=== PATIENT | female | born 1975 ===

== ENCOUNTER → 2023-04-30 13:59 | Outpatient (BNVA) | payer OTHER, MEDICARE, MEDICAID, SELFPAY | PROVIDERS: PCP Nurse Practitioner Adult Health; Visit Provider Nurse Practitioner Family ==

== ENCOUNTER → 2023-05-08 14:25 | Outpatient (BNVA) | payer OTHER, MEDICARE, MEDICAID, SELFPAY | PROVIDERS: PCP Nurse Practitioner Adult Health; Visit Provider Nurse Practitioner Family ==

== ENCOUNTER 2023-05-26 06:00 | Outpatient (REF) | payer OTHER, MEDICARE, MEDICAID, SELFPAY ==
--- NOTE | ~2023-05-26 | FL_ITS ---
EXAMINATION: XR FLUOROSCOPY WITH IMAGES CLINICAL INFORMATION: Chronic pain syndrome. COMPARISON: None available. TECHNIQUE: Fluoroscopy Supervised By: Dr. Todd Mckeon. Fluoroscopy Time: 0.2 minutes. Cumulative Dose: 1.61 mGy. DAP: 0.0280 Gycm2. Images: 2. FINDINGS: Images demonstrate needle projecting over the spinal canal of the upper lumbar spine FL/FL guidance in treatment room IMPRESSION: Fluoroscopic guidance for pain management procedure.
== END 2023-05-26 06:01 | disposition home or self-care (01) ==
LOC: CF 06:00
PROVIDERS: Visit Provider Anesthesiology
DX: G89.4 Chronic pain syndrome (principal); R10.11 Right upper quadrant pain; R10.12 Left upper quadrant pain; R10.13 Epigastric pain
CPT/HCPCS: 62323; J1170; J2795; Q9967

== ENCOUNTER 2023-05-26 07:11 | Outpatient (AMB) | payer OTHER, MEDICARE, MEDICAID, SELFPAY ==
[2023-05-26 07:15] VITALS: BP 118/52; PULSE 85; RESP 14; O2SAT 98; BMI 19.1
--- NOTE | 2023-05-26 07:15 | A.OFFVIS_ITS ---
Intake Vital Signs 05/26/23 07:15 05/26/23 10:10 Height 5 ft 5 in 5 ft 5 in Weight 115 lb 115 lb BMI 19.1 19.1 BP 118/52 L 110/60 Blood Pressure Location Lt brachial Rt brachial Position Sitting Sitting Respiration 14 14 Pulse 85 70 Pulse Source Pulse Oximeter Pulse Oximeter Pulse Oximetry (%) 98 98 Oxygen Delivery Method Room Air Room Air Comment Pre-Op Post-op Intake Visit Reasons: ITDD TRIAL WITH DILAUDID/LOCAL Allergies topiramate [From Topamax] Allergy (Unknown, Verified 05/26/23 07:16) Rash [facility] Medical History Abdominal pain, chronic, epigastric Anxiety Bilateral upper abdominal pain Chronic pain syndrome Insomnia Surgical History History of repair of hiatal hernia Social History Patient Tobacco Use Status: Never used Tobacco Physical Exam Vital Signs: Last Vital Signs Pulse 70 05/26/23 10:10 Resp 14 05/26/23 10:10 BP 110/60 05/26/23 10:10 Pulse Ox 98 05/26/23 10:10 Oxygen Delivery Method Room Air 05/26/23 10:10 BMI result Body Mass Index 19.1 Assessment & Plan Assessment & Plan (1) Chronic pain syndrome: Code(s): G89.4 - Chronic pain syndrome (2) Bilateral upper abdominal pain: Code(s): R10.11 - Right upper quadrant pain; R10.12 - Left upper quadrant pain (3) Abdominal pain, chronic, epigastric: Code(s): R10.13 - Epigastric pain; G89.29 - Other chronic pain Plan Intrathecal pain pump trial Informed consent was explained to the patient. All questions were explained and answered. The patient was taken inside of the operating room where she was positioned prone on the operating table. Time-out was performed delineating patient's name and date of , correct site, side, the nature of the procedure, patient's allergy, All operating room staff and the patient were participating in OR time-out procedure. the patient's lower back was prepped with ChloraPrep and draped with sterile utility draped. Sterilely draped C-arm was brought over the operating field and sq picture of lumbar vertebrae were delineated on the screen. the target of needle insertion was chosen between L2 and L3 vertebrae. The projection of the right lamina of the L2 vertebra was chosen as the starting point of the injection. 22 gauge 3-1/2 inch Wittaker needle was inserted through the skin after skin wheal was raised with lidocaine 2%. The needle was directed to the L2-L3 interlaminar space. The advancement of the needle was performed on intermittent anterior posterior and lateral views. On anterior posterior view needle was positioned strictly in the midline. On the lateral view needle entered in the projection of the center of the spinal canal. At that moment the stylet was removed from the needle and clear flow CSF was detected in the needle hub. After that 3 mLof the solution containing trial medication Dilaudid 80 mcg was injected into the needle. After that needle was removed sterile dressing was applied. Patient tolerated procedure well. She was taken outside of the operating room to the recovery room where she recovered uneventfully. Orders: Orders FL guidance in treatment room 05/26/23 G89.4 - Chronic pain syndrome Coding Level of Care Code Procedure Only Diagnoses Chronic pain syndrome G89.4 Bilateral upper abdominal pain R10.11; R10.12 Abdominal pain, chronic, epigastric R10.13; G89.29
[2023-05-26 10:10] VITALS: BP 110/60; PULSE 70; RESP 14; O2SAT 98; BMI 19.1
== END 2023-05-26 09:13 | disposition home or self-care (01) ==
PROVIDERS: PCP Nurse Practitioner Adult Health; Visit Provider Anesthesiology
DX: G89.4 Chronic pain syndrome (principal); R10.11 Right upper quadrant pain; R10.12 Left upper quadrant pain; R10.13 Epigastric pain
CPT/HCPCS: 62323

== ENCOUNTER 2023-06-01 13:23 | Outpatient (AMB) | payer OTHER, MEDICARE, MEDICAID, SELFPAY ==
--- NOTE | 2023-06-01 13:28 | A.OFFVIS_ITS ---
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 Mckeon. Patient reports 80% pain relief for over 24 hours post procedure without any side effects. Patient reports for the first time she was able to eat without pain, better functions, was able to sleep through the night and increase her social interactions. Patient reports her pain returned after 24 hours and she was advised to stay on Tylenol per her PCP for potential ITDD implant. She rates her abdominal pain at 9/10-10/10 with Tylenol. She also has PICC line at her right arm and started on home IVF infusion with some improvement. Patient reports her pain without Tramadol has been unbearable and she was not sure if she could restart Tramadol. I have informed patient again that Tramadol had to be only held for 24 hours prior to ITDD trial and 30 days prior to implant. Given significant pain increase, I will send her short script of tramadol as her PCP is not in the office until later this week. Patient requests to proceed with ITDD pain pump implant as next steps in managing her chronic pain. Denies any recent cough, cold, infection, fever or other significant changes in medical his tory since last office visit. PRIOR: Patient presents today for follow up after passing behavioral evaluation without any contraindications. She would like to proceed with ITDD pain pump trial with Dilaudid. Patient reports she has received Dilaudid 2 mg oral prn during hospitalizations after multiple abdominal surgeries and has responded well to it. Patient reports her pain at 8.5/10 today, daily nausea and vomiting, episodic weakness and dizziness and constant abdominal pain. She is following up with her PCP provider today to discuss potential IVF therapy at home. Denies any fever, chills, weight changes, chest pain, shortness of breaths, bladder or bowel incontinence or saddle anesthesia. PRIOR: Patient is a pleasant 47-year-old female with complex medical history including lupus, connective tissue disorder, fibromyalgia, autoimmune disease, migraines, severe anxiety and panic attacks, at least 50 abdominal surgeries including small intestine resection, gastric bypass and most recently hiatal hernia repair, presents today with chronic abdominal pain and polyarthralgia. Patient reports she has been in chronic pain and digestive issues since 2010 after gastric bypass. She reports concerns for losing weight without trying it due to frequent cyclic vomiting, daily nausea, frequent dizziness and lightheadedness, gait imbalance upon getting up and low blood pressure. Patient reports her chronic abdominal pain is constant and can be easily aggravated this or without p.o. intake. Patient reports she takes Zofran 8 mg Q8H and Phenergan Q6H p.r.n. for significant nausea and vomiting. Patient reports aching pain in all of her joints of upper and lower extremities, and the stabbing, tightness, heavy and burning pain in her abdomen areas with localized tenderness in RUQ, epigastric, LUQ and RLQ areas. Patient recently had hiatal hernia repair and her incisions are well healed. Her abdominal pain is most severe in the morning and at night at 7-10/10 and least severe mid day at 5/10. Tramadol has been minimally effective for abdominal pain. Patient also reports taking Dilaudid and Liquid Morphine with better relief in the past. She takes Tylenol and heating pad for aching joints. Patient reports she recently started light physical therapy with no improvement yet. Historical abdominal surgeries include in 1999, gastric bypass in 2010, ulcer perforated stomach in 2011, feeding tube x2 in 2012, small intestine tumor ressection in 2013, multiple abdominal surgeries, feeding tubes, hernia resection [id number], and hysterectomy 2020. Location Wide spread body pain, upper abd pain Duration Upper abdomen and epigastric since hernia repair, chronic pain since 2010 Characteristics of symptom or complaint Throbbing, shooting, stabbing, sharp, cramping, burning, tingling, heavy Aggravating or associated factors Movements, stress, weather changes, nauseas, vomiting Relieving factors Tramadol, Soma, clonidine, Ativan, Zofran, phenergan, Tylenol Treatment Mild PT x1 week so far, heating pad [facility] Medical History Abdominal pain, chronic, epigastric Anxiety Bilateral upper abdominal pain Chronic pain syndrome Insomnia Surgical History History of repair of hiatal hernia Social History Patient Tobacco Use Status: Never used Tobacco Review of Systems Const All systems reviewed & are unremarkable except as noted in HPI and below Physical Exam General: Appears afebrile. Alert and oriented. Mood and affect appropriate. Follows and participates in conversation appropriately. Respiratory effort is unlabored. No cough. Able to transition from sit to stand unassisted. Ambulates with bilaterally normal heel strike and toe off. GI Inspection: No distended and Yes scar (multiple) Palpation (GI): Soft to palpation and Tenderness to palpation present (GI) in the epigastrum, in the RLQ, in the LUQ and in the RUQ Extrem Right upper extremity: elbow/forearm (PICC line intact) Results Reviewed Results Reviewed: Assessment & Plan Assessment & Plan (1) Chronic pain syndrome: Code(s): G89.4 - Chronic pain syndrome (2) Bilateral upper abdominal pain: Code(s): R10.11 - Right upper quadrant pain; R10.12 - Left upper quadrant pain (3) Abdominal pain, chronic, epigastric: Code(s): R10.13 - Epigastric pain; G89.29 - Other chronic pain (4) Cyclic vomiting syndrome: Code(s): R11.15 - Cyclical vomiting syndrome unrelated to migraine Plan Patient passed Behavioral Assessment without contraindications. She had good results with ITDD pain pump trial with Dilaudid 80p mcg and is interested to proceed with ITDD pain pump Implant with sedation and fluoroscopy for chronic abdominal pain with complex history and multiple abdominal surgeries. Patient is aware she would need to be off tramadol for at least 30 days of tramadol for ITDD implant. I will send her short script of tramadol for this week and requests that her PCP restarts her on tramadol while we are awaiting for insuran ce approval and scheduling procedure in OR. She started IVF infusion via PICC line at home and notes some improvement in her hydration status. All questions were answered and the patient is in agreement with the treatment plan. Follow up after ITDD trial or sooner if needed. Anticoagulation: Patient is not on anticoagulant Justification for interventional therapy: ? Patient with average pain > 6/10 ? Patient has exhausted conservative therapy, opioid medication, physical therapy The risks, consequences, alternatives, and benefits of various treatment options were discussed with the patient in great detail, including conservative management, injections and procedures. Medications: Changed From tramadol 50 - 100 mg PO Q6H PRN pain G89.29 - Other chronic pain, G89.4 - Chronic pain syndrome, R10.11 - Right upper quadrant pain, R10.12 - Left upper quadrant pain, R10.13 - Epigastric pain To tramadol 50 - 100 mg (1 - 2 x 50 mg) PO Q6H 7 days PRN 20 tabs 0RF pain G89.29 - Other chronic pain, G89.4 - Chronic pain syndrome, R10.11 - Right upper quadrant pain, R10.12 - Left upper quadrant pain, R10.13 - Epigastric pain Coding Level of Care Code Est Pt Level 4 (72796) Diagnoses Chronic pain syndrome G89.4 Bilateral upper abdominal pain R10.11; R10.12 Abdominal pain, chronic, epigastric R10.13; G89.29 Cyclic vomiting syndrome R11.15
== END 2023-06-01 14:13 | disposition home or self-care (01) ==
PROVIDERS: PCP Nurse Practitioner Adult Health; Visit Provider Nurse Practitioner Family
DX: G89.4 Chronic pain syndrome (principal); R10.11 Right upper quadrant pain; R10.12 Left upper quadrant pain; R10.13 Epigastric pain; G89.29 Other chronic pain; R11.15 Cyclical vomiting syndrome unrelated to migraine
CPT/HCPCS: 99214

== ENCOUNTER → 2023-06-01 13:23 | Outpatient (BNVA) | payer OTHER, MEDICARE, MEDICAID, SELFPAY | PROVIDERS: PCP Nurse Practitioner Adult Health; Visit Provider Nurse Practitioner Family ==

== ENCOUNTER 2023-07-03 06:36 | Day surgery (SDC) | payer OTHER, MEDICARE, MEDICAID, SELFPAY ==
[2023-07-01 11:18] VITALS: BMI 19.1
--- NOTE | 2023-07-02 10:54 | HO.ANESPROP2 ---
Documented by User: Ema Thornton NP 07/02/23 10:55 HPI - Anesthesia Eval Consult details Narrative: 48yo F for Intrathecal Drug Delivery Implant PMFSH Active Problems Active Problems: All Active Problems (Updated 05/01/23 @ 20:06 by ROYER Fofana) Cyclic vomiting syndrome (Acute) Chronic pain syndrome (Acute) Bilateral upper abdominal pain (Acute) Abdominal pain, chronic, epigastric (Acute) Past Medical History Medical History Abdominal pain, chronic, epigastric Anxiety Bilateral upper abdominal pain Chronic pain syndrome Insomnia Surgical History Surgical History History of colon resection History of placement of ear tubes History of repair of hiatal hernia Hx of abdominal surgery Hx of section Hx of cholecystectomy Hx of gastric bypass Hx of hysterectomy Hx of lymph node excision Hx of tubal ligation Social History Social History Patient Tobacco Use Status: Former Tobacco user Quit Date: 25 yrs ago Use of substances other than those prescribed or required for medical reasons: No Are you DNR?: No Advance Directives: No Advance Directives Information Provided: Yes Meds Allergies Allergy/AdvReac Type Severity Reaction Status Date / Time topiramate [From Topamax] Allergy Unknown Rash Verified 07/03/23 06:48 Home Medications Medication Instructions Recorded Confirmed Last Taken Type buspirone 5 mg tablet 5 mg PO TID 04/30/23 07/03/23 Unknown History clonidine HCl 0.1 mg tablet 0.1 mg PO TID 04/30/23 07/03/23 Unknown History clonidine HCl 0.2 mg tablet 0.2 mg PO BEDTIME 04/30/23 07/03/23 Unknown History daridorexant 50 mg tablet (Quviviq) 50 mg PO BEDTIME 04/30/23 07/03/23 Unknown History linaclotide 145 mcg capsule 145 mcg PO DAILY PRN Constipation 04/30/23 07/03/23 Unknown History (Linzess) lorazepam 1 mg tablet 1 mg PO TID 04/30/23 07/03/23 Unknown History metoclopramide HCl 10 mg tablet 10 mg PO QID PRN Stomach Upset 04/30/23 07/03/23 Unknown History ondansetron 8 mg disintegrating 8 mg PO Q8H PRN nausea 04/30/23 07/03/23 Unknown History tablet rizatriptan 10 mg tablet 10 mg PO BID PRN Migraine Headache 04/30/23 07/03/23 Unknown History sumatriptan succinate 100 mg tablet 0 mg PO BID PRN Migraine Headache 04/30/23 07/03/23 Unknown History carisoprodol 350 mg tablet 350 mg PO QID 07/03/23 07/03/23 Unknown History Exam Exam Date and Time: July 02, 2023 105 Height,Weight and Vital Signs: Height 5 ft 5 in Weight 52.163 kg Assessment and Plan Assessment Anesthesia Assessment: Chart Reviewed Documented by User: Chaz Shields MD 07/03/23 07:32 [facility] Past Medical History Medical History Abdominal pain, chronic, epigastric Anxiety Bilateral upper abdominal pain Chronic pain syndrome Insomnia Family History Family history of problems with anesthesia: No Surgical History Surgical History History of colon resection History of placement of ear tubes History of repair of hiatal hernia Hx of abdominal surgery Hx of section Hx of cholecystectomy Hx of gastric bypass Hx of hysterectomy Hx of lymph node excision Hx of tubal ligation History of Problems with Anesthesia: No Social History Social History Patient Tobacco Use Status: Former Tobacco user Quit Date: 25 yrs ago Use of substances other than those prescribed or required for medical reasons: No Are you DNR?: No Advance Directives: No Advance Directives Information Provided: Yes Meds Allergies Allergy/AdvReac Type Severity Reaction Status Date / Time topiramate [From Topamax] Allergy Unknown Rash Verified 07/03/23 06:48 Home Medications Medication Instructions Recorded Confirmed Last Taken Type buspirone 5 mg tablet 5 mg PO TID 04/30/23 07/03/23 Unknown History clonidine HCl 0.1 mg tablet 0.1 mg PO TID 04/30/23 07/03/23 Unknown History clonidine HCl 0.2 mg tablet 0.2 mg PO BEDTIME 04/30/23 07/03/23 Unknown History daridorexant 50 mg tablet (Quviviq) 50 mg PO BEDTIME 04/30/23 07/03/23 Unknown History linaclotide 145 mcg capsule 145 mcg PO DAILY PRN Constipation 04/30/23 07/03/23 Unknown History (Linzess) lorazepam 1 mg tablet 1 mg PO TID 04/30/23 07/03/23 Unknown History metoclopramide HCl 10 mg tablet 10 mg PO QID PRN Stomach Upset 04/30/23 07/03/23 Unknown History ondansetron 8 mg disintegrating 8 mg PO Q8H PRN nausea 04/30/23 07/03/23 Unknown History tablet rizatriptan 10 mg tablet 10 mg PO BID PRN Migraine Headache 04/30/23 07/03/23 Unknown History sumatriptan succinate 100 mg tablet 0 mg PO BID PRN Migraine Headache 04/30/23 07/03/23 Unknown History carisoprodol 350 mg tablet 350 mg PO QID 07/03/23 07/03/23 Unknown History Exam Airway Mallampati Class: II TM Dist: >3cm Neck ROM: Limited Heart: rrr Lungs: cta Assessment and Plan Assessment Anesthesia Assessment: Anesthesia Plan Discussed Final Anesthetic Review Family History of Problems with Anesthesia: No History of Problems with Anesthesia: No NPO: Yes ASA Class: III Final Preanesthetic Review: No Changes in Pt Med Stat, Meds/Allgs Chart Reviewed, Consent Obtained/Reviewed and Anes Risks/Benef Reviewed Patient Risk: Intermediate Procedure Risk: Intermediate Anesthetic Plan Anesthetic Plan: MAC: and Agree w/ Assess. and Plan Disposition: Standard PACU
--- NOTE | ~2023-07-03 | FL_ITS ---
EXAMINATION: XR FLUOROSCOPY WITH IMAGES CLINICAL INFORMATION: Intrathecal drug delivery implant. COMPARISON: None available. TECHNIQUE: Fluoroscopy Supervised By: Dr. Todd Mckeon. Fluoroscopy Time: 0.4 minutes. Cumulative Dose: 5.17 mGy. DAP: 1.36 Gycm2. Images: 4. FINDINGS: Initial image demonstrates needle or probe projecting over the right interlaminar L2-L3 level. Subsequent images demonstrate a wire or lead projecting over the spinal canal. Final image demonstrates surgical instrument projecting over the right pelvis. FL/FL guidance in OR IMPRESSION: Fluoroscopy guidance for intrathecal drug delivery implant placement.
[2023-07-03 06:58] VITALS: BMI 19.1
[2023-07-03 07:03] VITALS: BP 120/70; PULSE 64; RESP 15; TEMP 36.7; O2SAT 98
[2023-07-03] MEDS: Lactated Ringers 1,000 ML 100 ML IVCONT (07:19)
--- NOTE | 2023-07-03 07:21 | MHC.SHP ---
Pre-Procedural Eval Section A Date of Service: 07/03/23 The patient is an INPATIENT: No Changes since office visit: Yes Patient answered all questions The History & Physical has been completed within 30 days and I have reviewed it.: No Section B Chief Complaint: Right and Left upper quadrant pain Details of Present Illness: as above Relevant Family History (Specify if Yes): No Relevant Social History: None Present Medications: see Short Stay Collaborative assessment Medical History: Significant History History of Previous Operations: Relevant previous surgery/procedure and date(s) (Leo en Y gasrtic bypass) Allergies: Allergies Allergy/AdvReac Type Severity Reaction Status Date / Time topiramate [From Topamax] Allergy Unknown Rash Verified 07/03/23 06:48 Review of Systems Sugical H&P ROS: Negative: Constitution, Cardiovascular, Respiratory, Neurological, Psychiatric, Hem-Onc, Allergic/Immunologic, Gastrointestinal, Genitourinary, Musculoskeletal, Integumentary, Endocrine and Eyes/Ears/Nose/Throat Exam Surgical H&P Exam: Normal: HEENT, Normal: Heart, Normal: Lungs, Normal: Extremities, Normal: Abdomen, Normal: Skin and Normal: Neurological Plan Diagnosis/Plan: Unchanged I have reviewed the history and physical and performed a pertinent physical examination on my patient. No changes have occurred unless specified. Time Spent With Patient Time: Total time managing care of this patient today __10__ minutes.
--- NOTE | 2023-07-03 07:25 | P.OP_ITS ---
Operative Note Operative Note Date of Service: 07/03/23 Narrative: Intrathecal drug delivery system (pain pump) implantation. After obtaining informed consent and explaining to the patient risks, benefits and alternatives to treat his pain, the patient was brought up to the operating room where she was positioned prone on the ORT..? [place] [employer] monitors were applied and the patient was sedated.? All pressure points protected.? The patient received antibiotic cefazolin 2 grams [id number] before the procedure onset.. Time-out was performed delineating correct site and side of the procedure, name and date of of the patient, risk of fire, need for antibiotic prophylaxis risk of DVT and need for DVT prophylaxis. ? After that the patient entire back was prepped with Chloroprep and draped with full body drape including Ioban film. Sterilely drape C-arm was brought over the OR field and square pictures of the?L1, L2, L3?vertebrae were demonstrated on the screen. the entrance point? for the catheter was chosen as the L2- L3 interspace. After infiltration of the skin with mixture of local anesthetics lidocaine 2% and ropivacaine 0.5% 1:1 8 mls in the projection of the spinal processes of L2- L3 .in the strict midline fashion?6 cm?vertical skin incision was made with #10 scalpel.?The incision was widened with the Weitlaner retractor and deepened with electrocautery. Thorough hemostasis was obtained using electrocautery. the prevertebral fascia was freed from overlaying tissues After that 100 mm introducer spinal 16 g needle was inserted under x-ray guidance in the project ion of the right L3 pedicle. The needle advanced under the x-ray guidance with intemitteny A-P? and lateral x-ray images toward the spinal canal L2-L3 interspace.. When on the lateral view the needle entered the spinal canal the stylet was removed and the clear flow of the CSF was obtain through the needle hub. Intrathecal Ascenda catheter was inserted through the needle and advanced under the x-ray guidance toward the??T5 vertebral body projection. The stylet was removed from the catheter and the flow of CSF fluid straw colored and clear was observed coming from the catheter.. After that the needle was withdrawn with care taken to keep the catheter in place.? Anchoring device was dislodged on the catheter and advanced until it met prevertebral fascia.? It was engaged on the body of the catheter.? Three anchoring Tycron 1.o sutures were used to suture left wing of the anchor to prevertebral fascia and 1 anchoring suture was used to stitch in the right wing of anchoring device to prevertebral fascia. ?After that the thorough irrigation of the wound was performed and wound was packed with vancomycin soaked 4 x 4. Attention then was concentrated on the patient's?left buttock.? Sterilely draped C-arm was brought over the operative field again and position of the patient's iliac crest on the left was demonstrated on the screen.? 3 cm below the projection of thetop of the left iliac crest to the skin of the local anesthetic ropivacaine0.5% mixture with lidocaine 1;1 was injected in the linear horizontal fashion.? After that 9 cm incision was performed in patient's right buttock alongside the injected line.? Thorough hemostasis was obtained using cautery device.? After that the wound was widened and made 3 cm deep .? The wound was extended medially and laterally as well as caudally and cranially to form the space to accommodate the body of the pump.? Thorough hemostasis was performed.? The wound was irrigated with vancomycin containing normal saline and then tunneling device was used to connect both wounds and dislodged the intrathecal catheter into the side wound.? The catheter was trimmed appropriately after that and sutureless connection device was connected with the catheter.? After that sutureless connection device was connected to the pump.? Aspiration of the side port of the pump revealed clear flow of CSF.??Three?anchoring 1.0 Tycron sutures were applied in most ?superior lateral, inferior lateral and inferior medial corners of the wound.? ?After that the sutures were connected to the bracket is on the body of the pump, intrathecal catheter was gathered behind the body of the pump and pump was dislodged into the wound.? After that the anchoring sutures were tied.? Thorough irrigation with vancomycin was performed again in both wounds.? Thorough hemostasis was verified.? 0 polisorb sutures were used to close both wounds, 2-0 suture of the same nature were used to approximate the skin.? [place] were applied to the skin line and Bacitracin ointment was applied to the staple lines.? Sterile dressing with sterile 4x4s was performed, abdominal binder was applied.? Upon completion of the procedure patient was awaken and taken outside of the operating room to recovery room where she recovered uneventfully.
--- NOTE | 2023-07-03 10:50 | PM.OP ---
Brief Operative Note Date of Service: 07/03/23 Pre-op diagnosis: chronic pain syndrome, chronic abdominal pain, s/p maty en-y gastric bypass Post-op diagnosis: same Procedure: implantation of the intrathecal drug delivery system pain pump. Surgeon: Todd Mckeon MD Anesthesia: MAC Was an Skein Yarn Dyer Helper used for this Procedure?: No Estimated blood loss (mL): 26 Pathology: none sent Condition: stable Disposition: PACU
[2023-07-03 10:55] VITALS: BP 87/54; PULSE 55; RESP 16; TEMP 36.5; O2SAT 98
[2023-07-03 11:11] VITALS: BP 101/62; PULSE 62; RESP 16; TEMP 36.1; O2SAT 95
== END 2023-07-03 11:40 | disposition home or self-care (01) ==
PROVIDERS: PCP Nurse Practitioner Adult Health; Visit Provider Anesthesiology
PROC: (CPT 62362; principal; 2023-07-03 08:20)
DX: R10.11 Right upper quadrant pain (principal); R10.12 Left upper quadrant pain; G89.4 Chronic pain syndrome; R10.13 Epigastric pain; R11.15 Cyclical vomiting syndrome unrelated to migraine; Z98.84 Bariatric surgery status; Z98.890 Other specified postprocedural states
CPT/HCPCS: 62362; C1755; C1772; J0690; J2250; J2371; J2795; J3010; J3370

== ENCOUNTER → 2023-07-03 06:36 | Outpatient (BNV) | payer OTHER, MEDICARE, MEDICAID, SELFPAY | PROVIDERS: PCP Nurse Practitioner Adult Health; Visit Provider Anesthesiology | DX: R10.11 Right upper quadrant pain (principal); R10.12 Left upper quadrant pain; Z98.84 Bariatric surgery status; Z45.1 Encounter for adjustment and management of infusion pump | CPT/HCPCS: 62323; 62362 ==

== ENCOUNTER 2023-07-06 12:38 | Outpatient (AMB) | payer OTHER, MEDICARE, MEDICAID, SELFPAY ==
--- NOTE | 2023-07-06 12:55 | A.OFFVIS_ITS ---
Intake Vital Signs 07/06/23 13:44 Height 5 ft 5 in Weight 115 lb BMI 19.1 BP 138/84 Blood Pressure Location Rt brachial Position Standing Respiration 14 Pulse 74 Pulse Source Pulse Oximeter Pulse Oximetry (%) 99 Oxygen Delivery Method Room Air Intake Visit Reasons: Inc pain s/p ITDD implant Allergies topiramate [From Topamax] Allergy (Unknown, Verified 07/03/23 06:48) Rash HPI HPI Comments History of Present Illness Details Patient is status post ITDD pain pump implant which was done on 07/03/2023. She reports that since the onset of the surgery her pain in the both incisions was ?unbearable ?and very severe. She came today for wound inspection. There is no signs of hematoma. There is no signs of swelling, redness, bruising, pathological bleeding through the staple lines. The dres sings are dry. Dressing is changed and bacitracin ointment sterile dressing was applied. She was on tramadol and she reports that tramadol does not help her pain. She stands on bilateral feet and does not report any numbness or weakness in bilateral lower extremities. She reports that pain is most severe when she is sitting or lying down. I will start her on hydromorphone 2 mg q.4 hours p.r.n. pain for the next 5 days total 30 pills. PRIOR: Patient presents today for follow up after passing behavioral evaluation without any contraindications. She would like to proceed with ITDD pain pump trial with Dilaudid. Patient reports she has received Dilaudid 2 mg oral prn during hospitalizations after multiple abdominal surgeries and has responded well to it. Patient reports her pain at 8.5/10 today, daily nausea and vomiting, episodic weakness and dizziness and constant abdominal pain. She is following up with her PCP provider today to discuss potential IVF therapy at home. Denies any fever, chills, weight changes, chest pain, shortness of breaths, bladder or bowel incontinence or saddle anesthesia. PRIOR: Patient is a pleasant 47-year-old female with complex medical history including lupus, connective tissue disorder, fibromyalgia, autoimmune disease, migraines, severe anxiety and panic attacks, at least 50 abdominal surgeries including small intestine resection, gastric bypass and most recently hiatal hernia repair, presents today with chronic abdominal pain and polyarthralgia. Patient reports she has been in chronic pain and digestive issues since 2010 after gastric bypass. She reports concerns for losing weight without trying it due to frequent cyclic vomiting, daily nausea, frequent dizziness and lightheadedness, gait imbalance upon getting up and low blood pressure. Patient reports her chronic abdominal pain is constant and can be easily aggravated this or without p.o. intake. Patient reports she takes Zofran 8 mg Q8H and Phenergan Q6H p.r.n. for significant nausea and vomiting. Patient reports aching pain in all of her joints of upper and lower extremities, and the stabbing, tightness, heavy and burning pain in her abdomen areas with localized tenderness in RUQ, epigastric, LUQ and RLQ areas. Patient recently had hiatal hernia repair and her incisions are well healed. Her abdominal pain is most severe in the morning and at night at 7-10/10 and least severe mid day at 5/10. Tramadol has been minimally effective for abdominal pain. Patient also reports taking Dilaudid and Liquid Morphine with better relief in the past. She takes Tylenol and heating pad for aching joints. Patient reports she recently started light physical therapy with no improvement yet. Historical abdominal surgeries include in 1999, gastric bypass in 2010, ulcer perforated stomach in 2011, feeding tube x2 in 2012, small intestine tumor ressection in 2013, multiple abdominal surgeries, feeding tubes, hernia resection [id number], and hysterectomy 2020. Location Wide spread body pain, upper abd pain Duration Upper abdomen and epigastric since hernia repair, chronic pain since 2010 Characteristics of symptom or complaint Throbbing, shooting, stabbing, sharp, cramping, burning, tingling, heavy Aggravating or associated factors Movements, stress, weather changes, nauseas, vomiting Relieving factors Tramadol, Soma, clonidine, Ativan, Zofran, phenergan, Tylenol Treatment Mild PT x1 week so far, heating pad PFSH Medical History Abdominal pain, chronic, epigastric Anxiety Bilateral upper abdominal pain Chronic pain syndrome Insomnia Surgical History History of colon resection History of placement of ear tubes History of repair of hiatal hernia Hx of abdominal surgery Hx of section Hx of cholecystectomy Hx of gastric bypass Hx of hysterectomy Hx of lymph node excision Hx of tubal ligation Social History Patient Tobacco Use Status: Former Tobacco user Quit Date: 25 yrs ago Review of Systems Const All systems reviewed & are unremarkable except as noted in HPI and below ENT Reports Normal hearing present Neuro Reports Normal hearing present, Denies Abnormal speech present and Denies Sensory deficit (Neuro) Physical Exam Vital Signs: Last Vital Signs Pulse 74 07/06/23 13:44 Resp 14 07/06/23 13:44 BP 138/84 07/06/23 13:44 Pulse Ox 99 07/06/23 13:44 Oxygen Delivery Method Room Air 07/06/23 13:44 BMI result Body Mass Index 19.1 Const General: acute distress moderate Orientation/consciousness: patient oriented x3 Eyes General: appearance normal, both eyes and all related structures Pupils: Equal, round and reactive pupils present EOM: EOMs intact bilaterally Neck Neck: Yes full ROM Chest Chest palpation & inspection: normal inspection of the chest Resp Effort & Inspection: normal respiratory effort, able to speak in complete sentences, normal respiratory pattern, no audible wheezes and no cough Cardio Jugular venous distension: no JVD GI Inspection: Yes normal to inspection Neuro General: patient oriented x3 and gait normal Cranial nerves: Yes CN's II-XII intact bilaterally, Yes Equal, round and reactive pupils present, Yes Normal hearing present and Yes Ability to bilaterally elevate shoulders present Speech: No Abnormal speech present Gait exam (Neuro): Normal gait present Motor exam (neuro): 5/5 motor strength present throughout Sensory Exam: No Sensory deficit (Neuro) Extrem General: No pedal edema Psych Speech and movement: Normal speech and movement present Affect: normal affect Attitude: cooperative Thought process: Normal thought process present Thought content: Normal thought content present Insight: Good insight present (Psych) Judgement: Good judgement present (Psych) Assessment & Plan Assessment & Plan (1) Chronic pain syndrome: Code(s): G89.4 - Chronic pain syndrome (2) Bilateral upper abdominal pain: Code(s): R10.11 - Right upper quadrant pain; R10.12 - Left upper quadrant pain (3) Abdominal pain, chronic, epigastric: Code(s): R10.13 - Epigastric pain; G89.29 - Other chronic pain (4) Cyclic vomiting syndrome: Code(s): R11.15 - Cyclical vomiting syndrome unrelated to migraine Plan The patient will be seen on the dressing change in 1 week. Abdominal binder explained. I will change her pain medication to stronger hydromorphone 2 mg q.4 hours. Anticoagulation: Patient is not on anticoagulant Justification for interventional therapy: ? Patient with average pain > 6/10 ? Patient has exhausted conservative therapy, opioid medication, physical therapy The risks, consequences, alternatives, and benefits of various treatment options were discussed with the patient in great detail, including conservative management, injections and procedures. Medications: New hydromorphone Partial Fill upon patient request. 2 mg PO Q4H PRN 30 tabs 0RF postoperative pain 5 days MDD 6 pills Discontinued tramadol Discontinued Reason: Doctor's Order 50 mg PO Q4H 5 days PRN 30 tabs 0RF postoperative pain MDD 6 pills Coding Level of Care Code Est Pt Level 3 (49640) Diagnoses Chronic pain syndrome G89.4 Bilateral upper abdominal pain R10.11; R10.12 Abdominal pain, chronic, epigastric R10.13; G89.29 Cyclic vomiting syndrome R11.15
[2023-07-06 13:44] VITALS: BP 138/84; PULSE 74; RESP 14; O2SAT 99; BMI 19.1
== END 2023-07-06 13:34 | disposition home or self-care (01) ==
PROVIDERS: PCP Nurse Practitioner Adult Health; Visit Provider Anesthesiology
DX: G89.4 Chronic pain syndrome (principal); R10.11 Right upper quadrant pain; R10.12 Left upper quadrant pain; R10.13 Epigastric pain; G89.29 Other chronic pain; R11.15 Cyclical vomiting syndrome unrelated to migraine
CPT/HCPCS: 99024

== ENCOUNTER → 2023-07-06 12:38 | Outpatient (BNVA) | payer OTHER, MEDICARE, MEDICAID, SELFPAY | PROVIDERS: PCP Nurse Practitioner Adult Health; Visit Provider Anesthesiology ==

== ENCOUNTER 2023-07-15 10:19 | Outpatient (AMB) | payer MEDICARE, MEDICAID, SELFPAY ==
--- NOTE | 2023-07-15 10:44 | MHC.OFFVIS ---
Intake Vital Signs 07/15/23 11:01 Height 5 ft 5 in Weight 128 lb BMI 21.3 BP 98/58 L Blood Pressure Location Rt brachial Position Sitting Respiration 17 Pulse 80 Pulse Source Pulse Oximeter Pulse Oximetry (%) 96 Oxygen Delivery Method Room Air Intake Visit Reasons: s/p ITDD Implant 07/03/23 Intake Note: patient comes in for post-op. Allergies topiramate [From Topamax] Allergy (Unknown, Verified 07/15/23 11:01) Rash HPI HPI Comments History of Present Illness Details Patient is status post ITDD pain pump implant which was done on 07/03/2023. She came today for wound inspection removal of the mason. There is no signs of swelling, redness, minimal tenderness on palpation and no pathological discharge. The mason were removed. The wound edges competent. Dressing with bacitracin ointment applied. Dressing is changed and bacitracin ointment sterile dressing was applied. Recommendations about hygiene practices was explained to the patient. She is allowed to take showers in 48 hours from now. She needs to continue to were abdominal binder and observe activity limitations for next 6 weeks. After that she may remove the abdominal binder and return to normal activities as tolerated. The pump was interrogated and adjusted as below. The on demand doses will be 80 mcg now twice a day every 8 hours. Also patient reported the increase of the lower extremity swelling with onset of continues intrathecal therapy. Opioid induced edema suspected. She was ordered with small amount of furosemide 20 mg q.o.d.. Diet modifications were explained to the patient. We would need to continue escalating her opioid doses. If despite of furosemide administration her edema will increase we would need to change medication her pump to the more lipophilic medication such is so fentanyl and or fentanyl, we may add clonidine, baclofen, octreotide, bupivacaine. Next appointment will be in 1 week from now. PRIOR: Patient presents today for follow up after passing behavioral evaluation without any contraindications. She would like to proceed with ITDD pain pump trial with Dilaudid. Patient reports she has received Dilaudid 2 mg oral prn during hospitalizations after multiple abdominal surgeries and has responded well to it. Patient reports her pain at 8.5/10 today, daily nausea and vomiting, episodic weakness and dizziness and constant abdominal pain. She is following up with her PCP provider today to discuss potential IVF therapy at home. Denies any fever, chills, weight changes, chest pain, shortness of breaths, bladder or bowel incontinence or saddle anesthesia. PRIOR: Patient is a pleasant 47-year-old female with complex medical history including lupus, connective tissue disorder, fibromyalgia, autoimmune disease, migraines, severe anxiety and panic attacks, at least 50 abdominal surgeries including small intestine resection, gastric bypass and most recently hiatal hernia repair, presents today with chronic abdominal pain and polyarthralgia. Patient reports she has been in chronic pain and digestive issues since 2010 after gastric bypass. She reports concerns for losing weight without trying it due to frequent cyclic vomiting, daily nausea, frequent dizziness and lightheadedness, gait imbalance upon getting up and low blood pressure. Patient reports her chronic abdominal pain is constant and can be easily aggravated this or without p.o. intake. Patient reports she takes Zofran 8 mg Q8H and Phenergan Q6H p.r.n. for significant nausea and vomiting. Patient reports aching pain in all of her joints of upper and lower extremities, and the stabbing, tightness, heavy and burning pain in her abdomen areas with localized tenderness in RUQ, epigastric, LUQ and RLQ areas. Patient recently had hiatal hernia repair and her incisions are well healed. Her abdominal pain is most severe in the morning and at night at 7-10/10 and least severe mid day at 5/10. Tramadol has been minimally effective for abdominal pain. Patient also reports taking Dilaudid and Liquid Morphine with better relief in the past. She takes Tylenol and heating pad for aching joints. Patient reports she recently started light physical therapy with no improvement yet. Historical abdominal surgeries include in 1999, gastric bypass in 2010, ulcer perforated stomach in 2011, feeding tube x2 in 2012, small intestine tumor ressection in 2013, multiple abdominal surgeries, feeding tubes, hernia resection [id number], and hysterectomy 2020. Location Wide spread body pain, upper abd pain Duration Upper abdomen and epigastric since hernia repair, chronic pain since 2010 Characteristics of symptom or complaint Throbbing, shooting, stabbing, sharp, cramping, burning, tingling, heavy Aggravating or associated factors Movements, stress, weather changes, nauseas, vomiting Relieving factors Tramadol, Soma, clonidine, Ativan, Zofran, phenergan, Tylenol Treatment Mild PT x1 week so far, heating pad [facility] Medical History Abdominal pain, chronic, epigastric Anxiety Bilateral upper abdominal pain Chronic pain syndrome Insomnia Surgical History History of colon resection History of placement of ear tubes History of repair of hiatal hernia Hx of abdominal surgery Hx of section Hx of cholecystectomy Hx of gastric bypass Hx of hysterectomy Hx of lymph node excision Hx of tubal ligation Social History Patient Tobacco Use Status: Former Tobacco user Quit Date: 25 yrs ago Review of Systems Const All systems reviewed & are unremarkable except as noted in HPI and below ENT Reports Normal hearing present Neuro Reports Normal hearing present, Denies Abnormal speech present and Denies Sensory deficit (Neuro) Physical Exam Vital Signs: Last Vital Signs Pulse 80 07/15/23 11:01 Resp 17 07/15/23 11:01 BP 98/58 L 07/15/23 11:01 Pulse Ox 96 07/15/23 11:01 Oxygen Delivery Method Room Air 07/15/23 11:01 BMI result Body Mass Index 21.3 Const General: acute distress moderate Orientation/consciousness: patient oriented x3 Eyes General: appearance normal, both eyes and all related structures Pupils: Equal, round and reactive pupils present EOM: EOMs intact bilaterally Neck Neck: Yes full ROM Chest Chest palpation & inspection: normal inspection of the chest Resp Effort & Inspection: normal respiratory effort, able to speak in complete sentences, normal respiratory pattern, no audible wheezes and no cough Cardio Jugular venous distension: no JVD GI Inspection: Yes normal to inspection Neuro General: patient oriented x3 and gait normal Cranial nerves: Yes CN's II-XII intact bilaterally, Yes Equal, round and reactive pupils present, Yes Normal hearing present and Yes Ability to bilaterally elevate shoulders present Speech: No Abnormal speech present Gait exam (Neuro): Normal gait present Motor exam (neuro): 5/5 motor strength present throughout Sensory Exam: No Sensory deficit (Neuro) Extrem Other: Moderate to minimal pedal edema is noted on exam. Psych Speech and movement: Normal speech and movement present Affect: normal affect Attitude: cooperative Thought process: Normal thought process present Thought content: Normal thought content present Insight: Good insight present (Psych) Judgement: Good judgement present (Psych) Assessment & Plan Assessment & Plan (1) Chronic pain syndrome: Code(s): G89.4 - Chronic pain syndrome (2) Bilateral upper abdominal pain: Code(s): R10.11 - Right upper quadrant pain; R10.12 - Left upper quadrant pain Plan: Procedure: Interrogation and dose adjustment of the intrathecal pain pump. Patient's intrathecal pump was interrogated and doses were changed the patient will continue to receive 60 micro g of hydromorphone continually and the dose of the on demand medication was changed to 80 micro g twice a day every 8 hours. (3) Abdominal pain, chronic, epigastric: Code(s): R10.13 - Epigastric pain; G89.29 - Other chronic pain (4) Cyclic vomiting syndrome: Code(s): R11.15 - Cyclical vomiting syndrome unrelated to migraine Plan Mason are removed today. Recommendations about hygiene routine were given to the patient. Opioid induced edema was discussed: See discussion as above. Appointment in 1 week for assessment and pain medication adjustment in the pump. Coding Level of Care Code Est Pt Level 4 (93983) Procedure Only Diagnoses Chronic pain syndrome G89.4 Bilateral upper abdominal pain R10.11; R10.12 Abdominal pain, chronic, epigastric R10.13; G89.29 Cyclic vomiting syndrome R11.15
[2023-07-15 11:01] VITALS: BP 98/58; PULSE 80; RESP 17; O2SAT 96; BMI 21.3
== END 2023-07-15 11:36 | disposition home or self-care (01) ==
PROVIDERS: PCP Nurse Practitioner Adult Health; Visit Provider Anesthesiology
DX: G89.4 Chronic pain syndrome (principal); R10.11 Right upper quadrant pain; R10.12 Left upper quadrant pain; R10.13 Epigastric pain; G89.29 Other chronic pain; R11.15 Cyclical vomiting syndrome unrelated to migraine
CPT/HCPCS: 62368

== ENCOUNTER → 2023-07-15 10:19 | Outpatient (BNVA) | payer MEDICARE, MEDICAID, SELFPAY | PROVIDERS: PCP Nurse Practitioner Adult Health; Visit Provider Anesthesiology | DX: Z45.1 Encounter for adjustment and management of infusion pump (principal); G89.4 Chronic pain syndrome; R10.11 Right upper quadrant pain; R10.12 Left upper quadrant pain; G89.29 Other chronic pain; R10.13 Epigastric pain; R11.15 Cyclical vomiting syndrome unrelated to migraine | CPT/HCPCS: 62368 ==

== ENCOUNTER 2023-07-27 14:30 | Outpatient (AMB) | payer MEDICARE, MEDICAID, SELFPAY ==
--- NOTE | 2023-07-27 14:31 | MHC.OFFVIS ---
Intake Vital Signs 07/27/23 14:40 Height 5 ft 5 in Weight 136 lb BMI 22.6 BP 120/72 Blood Pressure Location Lt brachial Position Sitting Respiration 14 Pulse 100 Pulse Source Pulse Oximeter Pulse Oximetry (%) 96 Oxygen Delivery Method Room Air Intake Visit Reasons: Pain Pump Allergies topiramate [From Topamax] Allergy (Unknown, Verified 07/27/23 14:41) Rash HPI HPI Comments History of Present Illness Details Patient is status post ITDD pain pump implant which was done on 07/03/2023. She reports improvement of the lower extremity edema on Lasix 20 mg every other day. With careful consideration we decided not to change medication in her pump just yet. I decided to increase the dose on demand to 110 micro g of hydromorphone and I shortened the interval between the administration doses to 6 hours but left the number of doses equal to 2 doses a day. Risks of respiratory depression is explained to the patient. I will start her on Narcan. I explained to her possibility of exacerbation of edema and this will be indication for us for change of the medication. Otherwise I will schedule her for refill of the medication in the pump on 08/14/2023. Also patient reported the increase of the lower extremity swelling with onset of continues intrathecal therapy. Opioid induced edema suspected. She was ordered with small amount of furosemide 20 mg q.o.d.. Diet modifications were explained to the patient. PRIOR: Patient presents today for follow up after passing behavioral evaluation without any contraindications. She would like to proceed with ITDD pain pump trial with Dilaudid. Patient reports she has received Dilaudid 2 mg oral prn during hospitalizations after multiple abdominal surgeries and has responded well to it. Patient reports her pain at 8.5/10 today, daily nausea and vomiting, episodic weakness and dizziness and constant abdominal pain. She is following up with her PCP provider today to discuss potential IVF therapy at home. Denies any fever, chills, weight changes, chest pain, shortness of breaths, bladder or bowel incontinence or saddle anesthesia. PRIOR: Patient is a pleasant 47-year-old female with complex medical history including lupus, connective tissue disorder, fibromyalgia, autoimmune disease, migraines, severe anxiety and panic attacks, at least 50 abdominal surgeries including small intestine resection, gastric bypass and most recently hiatal hernia repair, presents today with chronic abdominal pain and polyarthralgia. Patient reports she has been in chronic pain and digestive issues since 2010 after gastric bypass. She reports concerns for losing weight without trying it due to frequent cyclic vomiting, daily nausea, frequent dizziness and lightheadedness, gait imbalance upon getting up and low blood pressure. Patient reports her chronic abdominal pain is constant and can be easily aggravated this or without p.o. intake. Patient reports she takes Zofran 8 mg Q8H and Phenergan Q6H p.r.n. for significant nausea and vomiting. Patient reports aching pain in all of her joints of upper and lower extremities, and the stabbing, tightness, heavy and burning pain in her abdomen areas with localized tenderness in RUQ, epigastric, LUQ and RLQ areas. Patient recently had hiatal hernia repair and her incisions are well healed. Her abdominal pain is most severe in the morning and at night at 7-10/10 and least severe mid day at 5/10. Tramadol has been minimally effective for abdominal pain. Patient also reports taking Dilaudid and Liquid Morphine with better relief in the past. She takes Tylenol and heating pad for aching joints. Patient reports she recently started light physical therapy with no improvement yet. Historical abdominal surgeries include in 1999, gastric bypass in 2010, ulcer perforated stomach in 2011, feeding tube x2 in 2012, small intestine tumor ressection in 2013, multiple abdominal surgeries, feeding tubes, hernia resection [id number], and hysterectomy 2020. PFSH Medical History Chronic pain syndrome Anxiety Abdominal pain, chronic, epigastric Bilateral upper abdominal pain Insomnia Surgical History History of placement of ear tubes Hx of section Hx of tubal ligation Hx of cholecystectomy Hx of lymph node excision Hx of abdominal surgery History of colon resection Hx of gastric bypass Hx of hysterectomy History of repair of hiatal hernia Social History Patient Tobacco Use Status: Former Tobacco user Quit Date: 25 yrs ago Review of Systems Const All systems reviewed & are unremarkable except as noted in HPI and below ENT Reports Normal hearing present Neuro Reports Normal hearing present, Denies Abnormal speech present and Denies Sensory deficit (Neuro) Physical Exam Const General: acute distress moderate Orientation/consciousness: patient oriented x3 Eyes General: appearance normal, both eyes and all related structures Pupils: Equal, round and reactive pupils present EOM: EOMs intact bilaterally Neck Neck: Yes full ROM Chest Chest palpation & inspection: normal inspection of the chest Resp Effort & Inspection: normal respiratory effort, able to speak in complete sentences, normal respiratory pattern, no audible wheezes and no cough Cardio Jugular venous distension: no JVD GI Inspection: Yes normal to inspection Neuro General: patient oriented x3 and gait normal Cranial nerves: Yes CN's II-XII intact bilaterally, Yes Equal, round and reactive pupils present, Yes Normal hearing present and Yes Ability to bilaterally elevate shoulders present Speech: No Abnormal speech present Gait exam (Neuro): Normal gait present Motor exam (neuro): 5/5 motor strength present throughout Sensory Exam: No Sensory deficit (Neuro) Extrem Other: Moderate to minimal pedal edema is noted on exam. Psych Speech and movement: Normal speech and movement present Affect: normal affect Attitude: cooperative Thought process: Normal thought process present Thought content: Normal thought content present Insight: Good insight present (Psych) Judgement: Good judgement present (Psych) Assessment & Plan Assessment & Plan (1) Chronic pain syndrome: Code(s): G89.4 - Chronic pain syndrome (2) Bilateral upper abdominal pain: Code(s): R10.11 - Right upper quadrant pain; R10.12 - Left upper quadrant pain Plan: Procedure: Interrogation and dose adjustment of the intrathecal pain pump. Patient's intrathecal pump was interrogated and doses were changed the patient will continue to receive 24 micro g of hydromorphone continually and the dose of the on demand medication was changed to 110 micro g twice a day every 6 hours but not more than twice a day.. (3) Abdominal pain, chronic, epigastric: Code(s): R10.13 - Epigastric pain; G89.29 - Other chronic pain (4) Cyclic vomiting syndrome: Code(s): R11.15 - Cyclical vomiting syndrome unrelated to migraine Plan Next pump refill on 04/2023. However if the patient experiences side effects we would need to change medication for another 1 probably fentanyl. Pump adjustment is as above. I will prescribe her naloxone. Continue Lasix 20 mg q.o.d., diet modification with inclusion of high potassium food products was explained to the patient. Medications: New naloxone 4 mg/actuation spray 1 dose into ONE nostril; alternate nostrils w each dose until help arrives 4 mg intranasal Q2M PRN 2 ea 6RF opioid overdose 1 day Coding Level of Care Code Est Pt Level 3 (71499) Procedure Only Diagnoses Chronic pain syndrome G89.4 Bilateral upper abdominal pain R10.11; R10.12 Abdominal pain, chronic, epigastric R10.13; G89.29 Cyclic vomiting syndrome R11.15
[2023-07-27 14:40] VITALS: BP 120/72; PULSE 100; RESP 14; O2SAT 96; BMI 22.6
== END 2023-07-27 15:02 | disposition home or self-care (01) ==
PROVIDERS: PCP Nurse Practitioner Adult Health; Visit Provider Anesthesiology
DX: G89.4 Chronic pain syndrome (principal); R10.11 Right upper quadrant pain; R10.12 Left upper quadrant pain; R10.13 Epigastric pain; G89.29 Other chronic pain; R11.15 Cyclical vomiting syndrome unrelated to migraine; Z45.1 Encounter for adjustment and management of infusion pump
CPT/HCPCS: 62368

== ENCOUNTER → 2023-07-27 14:30 | Outpatient (BNVA) | payer MEDICARE, MEDICAID, SELFPAY | PROVIDERS: PCP Nurse Practitioner Adult Health; Visit Provider Anesthesiology | DX: R10.11 Right upper quadrant pain (principal); R10.12 Left upper quadrant pain; R10.13 Epigastric pain; R11.15 Cyclical vomiting syndrome unrelated to migraine; G89.29 Other chronic pain; Z97.8 Presence of other specified devices | CPT/HCPCS: 62368 ==

== ENCOUNTER 2023-08-12 08:56 | Outpatient (AMB) | payer MEDICARE, MEDICAID, SELFPAY ==
[2023-08-12 09:04] VITALS: BP 130/68; PULSE 101; RESP 16; O2SAT 96; BMI 21.6
--- NOTE | 2023-08-12 09:04 | A.OFFVIS_ITS ---
Intake Vital Signs 08/12/23 09:04 Height 5 ft 5 in Weight 130 lb BMI 21.6 BP 130/68 Blood Pressure Location Rt brachial Position Sitting Respiration 16 Pulse 101 H Pulse Source Pulse Oximeter Pulse Oximetry (%) 96 Oxygen Delivery Method Room Air Intake Visit Reasons: ITDD Pain Pump Refill/ LVM Intake Note: patient comes in for discussion. Allergies topiramate [From Topamax] Allergy (Unknown, Verified 08/12/23 09:06) Rash HPI HPI Comments History of Present Illness Details Marlen is back in my office for intrathecal pump refill. Patient is status post ITDD pain pump implant which was done on 07/03/2023. Unfortunately with escalation of the intrathecal doses her intrathecal pump medications started to cause more severe edema on bilateral lower extremities. Her primary care physician increased her Lasix to 20 mg every day. Unfortunately patient reports that the new dose of the medication only takes the edge of of her current pain sensation. Therefore with prospective of continuous escalation of the opioid dose where will create significant lower extremities edema and in this would require much higher doses of Lasix which would not be appropriate for long-term care use. She came today to fill up her pump but we decided to order fentanyl instead and rash in these medication for Thursday08/14/2023. Today the pump was interrogated and the low fluid allow intra shoulder was down to 0.7 mL. She is using 0.5 mL of the admixture day and she has 3.5 mL in her pump therefore she must be safe to wait until Thursday. patient reported the increase of the lower extremity swelling with onset of continues intrathecal therapy. Opioid induced edema suspected. She was ordered with small amount of furosemide 20 mg q.o.d.. Diet modifications were explained to the patient. PRIOR: Patient presents today for follow up after passing behavioral evaluation without any contraindications. She would like to proceed with ITDD pain pump trial with Dilaudid. Patient reports she has received Dilaudid 2 mg oral prn during hospitalizations after multiple abdominal surgeries and has responded well to it. Patient reports her pain at 8.5/10 today, daily nausea and vomiting, episodic weakness and dizziness and constant abdominal pain. She is following up with her PCP provider today to discuss potential IVF therapy at home. Denies any fever, chills, weight changes, chest pain, shortness of breaths, bladder or bowel incontinence or saddle anesthesia. PRIOR: Patient is a pleasant 47-year-old female with complex medical history including lupus, connective tissue disorder, fibromyalgia, autoimmune disease, migraines, severe anxiety and panic attacks, at least 50 abdominal surgeries including small intestine resection, gastric bypass and most recently hiatal hernia repair, presents today with chronic abdominal pain and polyarthralgia. Patient reports she has been in chronic pain and digestive issues since 2010 after gastric bypass. She reports concerns for losing weight without trying it due to frequent cyclic vomiting, daily nausea, frequent dizziness and lightheadedness, gait imbalance upon getting up and low blood pressure. Patient reports her chronic abdominal pain is constant and can be easily aggravated this or without p.o. intake. Patient reports she takes Zofran 8 mg Q8H and Phenergan Q6H p.r.n. for significant nausea and vomiting. Patient reports aching pain in all of her joints of upper and lower extremities, and the stabbing, tightness, heavy and burning pain in her abdomen areas with localized tenderness in RUQ, epigastric, LUQ and RLQ areas. Patient recently had hiatal hernia repair and her incisions are well healed. Her abdominal pain is most severe in the morning and at night at 7-10/10 and least severe mid day at 5/10. Tramadol has been minimally effective for abdominal pain. Patient also reports taking Dilaudid and Liquid Morphine with better relief in the past. She takes Tylenol and heating pad for aching joints. Patient reports she recently started light physical therapy with no improvement yet. Historical abdominal surgeries include in 1999, gastric bypass in 2010, ulcer perforated stomach in 2011, feeding tube x2 in 2012, small intestine tumor ressection in 2013, multiple abdominal surgeries, feeding tubes, hernia resection [id number], and hysterectomy 2020. [facility] Medical History Chronic pain syndrome Anxiety Abdominal pain, chronic, epigastric Bilateral upper abdominal pain Insomnia Surgical History History of placement of ear tubes Hx of section Hx of tubal ligation Hx of cholecystectomy Hx of lymph node excision Hx of abdominal surgery History of colon resection Hx of gastric bypass Hx of hysterectomy History of repair of hiatal hernia Social History Patient Tobacco Use Status: Former Tobacco user Quit Date: 25 yrs ago Review of Systems Const All systems reviewed & are unremarkable except as noted in HPI and below ENT Reports Normal hearing present Card Reports pedal edema Neuro Reports Normal hearing present, Denies Abnormal speech present and Denies S ensory deficit (Neuro) Physical Exam Vital Signs: Last Vital Signs Pulse 101 H 08/12/23 09:04 Resp 16 08/12/23 09:04 BP 130/68 08/12/23 09:04 Pulse Ox 96 08/12/23 09:04 Oxygen Delivery Method Room Air 08/12/23 09:04 BMI result Body Mass Index 21.6 Const General: acute distress moderate Orientation/consciousness: patient oriented x3 Eyes General: appearance normal, both eyes and all related structures Pupils: Equal, round and reactive pupils present EOM: EOMs intact bilaterally Neck Neck: Yes full ROM Chest Chest palpation & inspection: normal inspection of the chest Resp Effort & Inspection: normal respiratory effort, able to speak in complete sentences, normal respiratory pattern, no audible wheezes and no cough Cardio Jugular venous distension: no JVD Peripheral pulses: other (Dependent edema bilateral lower extremities) GI Inspection: Yes normal to inspection Neuro General: patient oriented x3 and gait normal Cranial nerves: Yes Equal, round and reactive pupils present and Yes Normal hearing present Speech: No Abnormal speech present Gait exam (Neuro): Normal gait present Motor exam (neuro): 5/5 motor strength present throughout Sensory Exam: No Sensory deficit (Neuro) Extrem Other: Moderate to minimal pedal edema is noted on exam. Psych Speech and movement: Normal speech and movement present Affect: normal affect Attitude: cooperative Thought process: Normal thought process present Thought content: Normal thought content present Insight: Good insight present (Psych) Judgement: Good judgement present (Psych) Assessment & Plan Assessment & Plan (1) Chronic pain syndrome: Code(s): G89.4 - Chronic pain syndrome (2) Bilateral upper abdominal pain: Code(s): R10.11 - Right upper quadrant pain; R10.12 - Left upper quadrant pain (3) Abdominal pain, chronic, epigastric: Code(s): R10.13 - Epigastric pain; G89.29 - Other chronic pain (4) Cyclic vomiting syndrome: Code(s): R11.15 - Cyclical vomiting syndrome unrelated to migraine Plan We will rash in the refill of the pump on 04/2023. I ordered fentanyl 70 micrograms/mL 20 mL to be rushed in. She has naloxone For now continue Lasix 20 mg q.o.d., diet modification with inclusion of high potassium food products was explained to the patient. Coding Level of Care Code Est Pt Level 4 (34316) Diagnoses Chronic pain syndrome G89.4 Bilateral upper abdominal pain R10.11; R10.12 Abdominal pain, chronic, epigastric R10.13; G89.29 Cyclic vomiting syndrome R11.15
== END 2023-08-12 09:35 | disposition home or self-care (01) ==
PROVIDERS: PCP Nurse Practitioner Adult Health; Visit Provider Anesthesiology
DX: G89.4 Chronic pain syndrome (principal); R10.11 Right upper quadrant pain; R10.12 Left upper quadrant pain; Z45.1 Encounter for adjustment and management of infusion pump; R10.13 Epigastric pain; G89.29 Other chronic pain; R11.15 Cyclical vomiting syndrome unrelated to migraine
CPT/HCPCS: 62367; 99214

== ENCOUNTER → 2023-08-12 08:56 | Outpatient (BNVA) | payer MEDICARE, MEDICAID, SELFPAY | PROVIDERS: PCP Nurse Practitioner Adult Health; Visit Provider Anesthesiology | DX: Z45.1 Encounter for adjustment and management of infusion pump (principal); G89.4 Chronic pain syndrome; R10.11 Right upper quadrant pain; R10.12 Left upper quadrant pain; R10.13 Epigastric pain; R11.15 Cyclical vomiting syndrome unrelated to migraine | CPT/HCPCS: 62367; 99212 ==

== ENCOUNTER 2023-08-14 12:25 | Outpatient (AMB) | payer MEDICARE, MEDICAID, SELFPAY ==
--- NOTE | 2023-08-14 12:47 | MHC.OFFVIS ---
Intake Vital Signs 08/14/23 12:48 Height 5 ft 5 in Weight 130 lb BMI 21.6 BP 112/62 Blood Pressure Location Lt brachial Position Sitting Respiration 16 Pulse 63 Pulse Source Pulse Oximeter Pulse Oximetry (%) 97 Oxygen Delivery Method Room Air Intake Visit Reasons: ITDD Pain Pump Refill Intake Note: patient comes in for ITDD pain pump refill. Allergies topiramate [From Topamax] Allergy (Unknown, Verified 08/12/23 09:06) Rash HPI HPI Comments History of Present Illness Details Marlen is back in my office for intrathecal pump refill. Patient is status post ITDD pain pump implant which was done on 07/03/2023. Unfortunately with escalation of the intrathecal doses her intrathecal pump medications started to cause more severe edema on bilateral lower extremities. Her primary care physician increased her Lasix to 20 mg every day. Unfortunately patient reports that the new dose of the medication only takes the edge of of her current pain sensation. Therefore with prospective of continuous escalation of the opioid dose will create significant lower extremities edema and in this would require much higher doses of Lasix which would not be appropriate for long-term care use. She came today to fill up her pump with fentanyl at the concentration of 70 mcg per ml. 20 mls.. The pump refill procedure as below. However after the pump refill was completed with continuous dose of fentanyl 15 mcg a day and on demand fentanyl 60 mcg 1 dose in 8 hours total two doses a day and the patent left my office, Ihad a second thoughts and decided to be at the err of caution. I called the patient and explained her that with the new medication the above dose would be too bold to start with and asked her not to use PTM device until we will see during the course of few days if there will be no complications on the small continuous dose of fentanyl. She agreed and expressed understanding. She will stop furosemide and we will see if this new medication have an effect on her edema. I will see her in one week. PRIOR: Patient presents today for follow up after passing behavioral evaluation without any contraindications. She would like to proceed with ITDD pain pump trial with Dilaudid. Patient reports she has received Dilaudid 2 mg oral prn during hospitalizations after multiple abdominal surgeries and has responded well to it. Patient reports her pain at 8.5/10 today, daily nausea and vomiting, episodic weakness and dizziness and constant abdominal pain. She is following up with her PCP provider today to discuss potential IVF therapy at home. Denies any fever, chills, weight changes, chest pain, shortness of breaths, bladder or bowel incontinence or saddle anesthesia. PRIOR: Patient is a pleasant 47-year-old female with complex medical history including lupus, connective tissue disorder, fibromyalgia, autoimmune disease, migraines, severe anxiety and panic attacks, at least 50 abdominal surgeries including small intestine resection, gastric bypass and most recently hiatal hernia repair, presents today with chronic abdominal pain and polyarthralgia. Patient reports she has been in chronic pain and digestive issues since 2010 after gastric bypass. She reports concerns for losing weight without trying it due to frequent cyclic vomiting, daily nausea, frequent dizziness and lightheadedness, gait imbalance upon getting up and low blood pressure. Patient reports her chronic abdominal pain is constant and can be easily aggravated this or without p.o. intake. Patient reports she takes Zofran 8 mg Q8H and Phenergan Q6H p.r.n. for significant nausea and vomiting. Patient reports aching pain in all of her joints of upper and lower extremities, and the stabbing, tightness, heavy and burning pain in her abdomen areas with localized tenderness in RUQ, epigastric, LUQ and RLQ areas. Patient recently had hiatal hernia repair and her incisions are well healed. Her abdominal pain is most severe in the morning and at night at 7-10/10 and least severe mid day at 5/10. Tramadol has been minimally effective for abdominal pain. Patient also reports taking Dilaudid and Liquid Morphine with better relief in the past. She takes Tylenol and heating pad for aching joints. Patient reports she recently started light physical therapy with no improvement yet. Historical abdominal surgeries include in 1999, gastric bypass in 2010, ulcer perforated stomach in 2011, feeding tube x2 in 2012, small intestine tumor ressection in 2013, multiple abdominal surgeries, feeding tubes, hernia resection [id number], and hysterectomy 2020. [facility] Medical History Chronic pain syndrome Anxiety Abdominal pain, chronic, epigastric Bilateral upper abdominal pain Insomnia Surgical History History of placement of ear tubes Hx of section Hx of tubal ligation Hx of cholecystectomy Hx of lymph node excision Hx of abdominal surgery History of colon resection Hx of gastric bypass Hx of hysterectomy History of repair of hiatal hernia Social History Patient Tobacco Use Status: Former Tobacco user Quit Date: 25 yrs ago Review of Systems Const All systems reviewed & are unremarkable except as noted in HPI and below ENT Reports Normal hearing present Neuro Reports Normal hearing present, Denies Abnormal speech present and Denies Sensory deficit (Neuro) Physical Exam Vital Signs: Last Vital Signs Pulse 63 08/14/23 12:48 Resp 16 08/14/23 12:48 BP 112/62 08/14/23 12:48 Pulse Ox 97 08/14/23 12:48 Oxygen Delivery Method Room Air 08/14/23 12:48 BMI result Body Mass Index 21.6 Const General: acute distress moderate Orientation/consciousness: patient oriented x3 Eyes General: appearance normal, both eyes and all related structures Pupils: Equal, round and reactive pupils present EOM: EOMs intact bilaterally Neck Neck: Yes full ROM Chest Chest palpation & inspection: normal inspection of the chest Resp Effort & Inspection: normal respiratory effort, able to speak in complete sentences, normal respiratory pattern, no audible wheezes and no cough Cardio Jugular venous distension: no JVD Peripheral pulses: other (Dependent edema bilateral lower extremities) GI Inspection: Yes normal to inspection Neuro General: patient oriented x3 and gait normal Cranial nerves: Yes Equal, round and reactive pupils present and Yes Normal hearing present Speech: No Abnormal speech present Gait exam (Neuro): Normal gait present Motor exam (neuro): 5/5 motor strength present throughout Sensory Exam: No Sensory deficit (Neuro) Extrem Other: Moderate to minimal pedal edema is noted on exam. Psych Speech and movement: Normal speech and movement present Affect: normal affect Attitude: cooperative Thought process: Normal thought process present Thought content: Normal thought content present Insight: Good insight present (Psych) Judgement: Good judgement present (Psych) Assessment & Plan Assessment & Plan (1) Chronic pain syndrome: Code(s): G89.4 - Chronic pain syndrome (2) Bilateral upper abdominal pain: Code(s): R10.11 - Right upper quadrant pain; R10.12 - Left upper quadrant pain Plan: Procedure: Intrathecal pump refill. THE PATIENT CAME TODAY in the office FOR THE CHANGE OF THE MEDICATION in her PAIN PUMP. The name and date of were verified and informed consent was obtained for the procedure. ?The pump was interrogated and the residual amount of fluid was found to be 2.4 mL. SHE WAS POSITIONED prone on the bed AND THE AREA OF THE INTRATHECAL PUMP WAS PREPPED WITH CHLORAPREP. The fenestrated drape was sterilely applied over the area of the pump. Sterile gloves were worn and of the aspiration system was assembled containing 2 in 22 gauge noncoring needle, the needle was connected to extension tubing which was connected to the 20 cc sterile syringe. The pain pump was palpated under the skin in the patient's right buttock area. The needle was inserted through the skin and the central plug of the pain pump and fluid was aspirated. The clear fluid was going into the syringe the total amount of the fluid was 2.5 mL .. After that a new batch? of medication was obtained which was containing Fentanyl in concentration 70 micro g/ml The admixture was made in 20 cc syringe prepared by [facility] compounding pharmacy. The syringe was connected to the bacterial filter, and then connected to the extension tubing. After that the medication in the syringe was slowly instilled into the pump with aspirations at 15 and 5 cc pulido.? The pump was reprogrammed for the doses of Fentanyl 15mcg per day .? The pump was programmmed for two doses of PTM 60 micrograms intrathecally? every 8 hours with maximum 2 activations per 24 hour, however later on I requested the patient to avoid the PTM until further notice. (3) Abdominal pain, chronic, epigastric: Code(s): R10.13 - Epigastric pain; G89.29 - Other chronic pain (4) Cyclic vomiting syndrome: Code(s): R11.15 - Cyclical vomiting syndrome unrelated to migraine Plan Pump refilled as above. further corrections were made as above and discussed with the patient via telephone in the presence of Bettye Dupont Pain Medicine admissions officer. The patient expressed understanding. She will be seen on 08/19/2023. Coding Level of Care Code Est Pt Level 4 (86212) Procedure Only Diagnoses Chronic pain syndrome G89.4 Bilateral upper abdominal pain R10.11; R10.12 Abdominal pain, chronic, epigastric R10.13; G89.29 Cyclic vomiting syndrome R11.15
[2023-08-14 12:48] VITALS: BP 112/62; PULSE 63; RESP 16; O2SAT 97; BMI 21.6
== END 2023-08-14 13:24 | disposition home or self-care (01) ==
PROVIDERS: PCP Nurse Practitioner Adult Health; Visit Provider Anesthesiology
DX: G89.4 Chronic pain syndrome (principal); R10.11 Right upper quadrant pain; R10.12 Left upper quadrant pain; Z45.1 Encounter for adjustment and management of infusion pump; R10.13 Epigastric pain; G89.29 Other chronic pain; R11.15 Cyclical vomiting syndrome unrelated to migraine
CPT/HCPCS: 62370; 99214

== ENCOUNTER → 2023-08-14 12:25 | Outpatient (BNVA) | payer MEDICARE, MEDICAID, SELFPAY | PROVIDERS: PCP Nurse Practitioner Adult Health; Visit Provider Anesthesiology | DX: Z45.89 Encounter for adjustment and management of other implanted devices (principal); G89.4 Chronic pain syndrome; R10.11 Right upper quadrant pain; R10.12 Left upper quadrant pain; R10.13 Epigastric pain; R11.15 Cyclical vomiting syndrome unrelated to migraine; G89.29 Other chronic pain | CPT/HCPCS: 62370; 99212 ==

== ENCOUNTER 2023-08-19 10:11 | Emergency (ER) | payer MEDICARE, MEDICAID, SELFPAY ==
[2023-08-19 10:18] VITALS: BP 147/107; PULSE 102; RESP 19; TEMP 36.6; O2SAT 98; BMI 21.6
--- NOTE | 2023-08-19 10:33 | PC.NURSE ---
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
--- NOTE | 2023-08-19 13:11 | HO.PAINCONS ---
Review of Systems Constitutional: Constitutional: Reports anorexia and Reports lethargy ENT: Reports Normal hearing present Cardiovascular: Cardiovascular: Reports no additional cardiovascular complaints Respiratory: Respiratory: Reports no additional respiratory complaints Gastrointestinal: Gastrointestinal: Reports abdominal pain, Reports bloating, Reports nausea, Reports vomiting and Reports hematemesis Genitourinary: Genitourinary: Reports no additional female genitourinary complaints Musculoskeletal: Musculoskeletal: Reports no additional musculoskeletal complaints Neurologic: Reports Normal hearing present, Denies Abnormal speech present and Denies Sensory deficit (Neuro) Psychiatric: Psychiatric: Reports no additional psychiatric complaints [facility] Past Medical History Medical History (Updated 08/19/23 @ 13:20 by Todd Mckeon MD) Chronic pain syndrome Anxiety Abdominal pain, chronic, epigastric Bilateral upper abdominal pain Insomnia Surgical History History of placement of ear tubes Hx of section Hx of tubal ligation Hx of cholecystectomy Hx of lymph node excision Hx of abdominal surgery History of colon resection Hx of gastric bypass Hx of hysterectomy History of repair of hiatal hernia Social History Social History Patient Tobacco Use Status: Former Tobacco user Quit Date: 25 yrs ago Physical Exam Vital Signs: Vital Signs: Last Vital Signs Temp 98 F 08/19/23 10:18 Pulse 102 H 08/19/23 10:18 Resp 19 08/19/23 10:18 BP 147/107 H 08/19/23 10:18 Pulse Ox 98 08/19/23 10:18 O2 Del Method Room Air 08/19/23 10:18 BMI result Body Mass Index 21.6 Const: General: acute distress moderate Orientation/consciousness: patient oriented x3 Eyes: General: appearance normal, both eyes and all related structures Pupils: Equal, round and reactive pupils present EOM: EOMs intact bilaterally Neck: Neck: Yes full ROM Chest: Chest palpation & inspection: normal inspection of the chest Resp: Effort & Inspection: normal respiratory effort, able to speak in complete sentences, normal respiratory pattern, no audible wheezes and no cough Cardio: Jugular venous distension: no JVD Peripheral pulses: other (Dependent edema bilateral lower extremities) GI: Inspection: Yes normal to inspection Neuro: General: patient oriented x3 and gait normal Cranial nerves: Yes Equal, round and reactive pupils present and Yes Normal hearing present Speech: No Abnormal speech present Gait exam (Neuro): Normal gait present Motor exam (neuro): 5/5 motor strength present throughout Sensory Exam: No Sensory deficit (Neuro) Extrem: Other: No edema noted in bilateral lower extremities. Psych: Speech and movement: Normal speech and movement present Affect: normal affect Attitude: cooperative Thought process: Normal thought process present Thought content: Normal thought content present Insight: Good insight present (Psych) Judgement: Good judgement present (Psych) Assessment and Plan (1) Cyclic vomiting syndrome: Status: Acute (2) Chronic pain syndrome: Status: Acute (3) Bilateral upper abdominal pain: Status: Acute (4) Abdominal pain, chronic, epigastric: Status: Acute (5) Implantable intrathecal infusion pump present: Status: Acute Assessment and Plan: Most likely the current episode of vomiting related to patient's gastric bypass history. Her 0 lipase is normal and liver function test is normal. She will try to use intrathecal pump to just the level of her pain. She might need upper GI EGD to establish or dismiss a diagnosis of anastomosis ulcer. Time Spent With Patient Time: Total time managing care of this patient today _20___ minutes.
== END 2023-08-19 19:45 | disposition left against medical advice (07) ==
PROVIDERS: Emergency Provider Emergency Medicine; PCP Nurse Practitioner Adult Health
DX: R11.15 Cyclical vomiting syndrome unrelated to migraine (principal); R11.2 Nausea with vomiting, unspecified; G89.29 Other chronic pain; R10.13 Epigastric pain; R10.11 Right upper quadrant pain; Z79.899 Other long term (current) drug therapy
CPT/HCPCS: 36415; 80048; 80076; 83690; 85025; 85610; 99214; 99281; 99283

== ENCOUNTER 2023-08-31 08:55 | Outpatient (AMB) | payer MEDICARE, MEDICAID, SELFPAY ==
--- NOTE | 2023-08-31 09:27 | A.OFFVIS_ITS ---
Intake Vital Signs 08/31/23 09:34 Height 5 ft 5 in Weight 136 lb BMI 22.6 BP 117/71 Blood Pressure Location Lt brachial Position Sitting Respiration 14 Pulse 71 Pulse Source Pulse Oximeter Pulse Oximetry (%) 95 Oxygen Delivery Method Room Air Intake Visit Reasons: ITDD Pain Pump Refill Intake Note: Patient comes in for pain pump refill. Allergies topiramate [From Topamax] Allergy (Unknown, Verified 08/31/23 09:35) Rash HPI HPI Comments History of Present Illness Details Marlen is back in my office for intrathecal pump refill. She reports no longer lower extremities edema even when she is using her medication appropriately for PTM application. She reports a relatively appropriate pain relief which lasts up to 1 hour after administration of the medication. The concentration of the medication today was changed to fentanyl 150 micro g per mL. I managed to keep the continues does of the medication at 19 micro g a day. I increased the dose of the fentanyl on demand from 30 micro g 1 PTM dose to 35 micro g with duration administration of 30 minutes instead of 40 minutes open (this supposed to create stronger jet inside her CSF and spread medication further. Also she will be able to administer this does every 4 hours 4 times a day 1 dose increase from the last time when she was able to administer herself only 2 doses a day. Her current fentanyl concentration will allow us to perform her next refill on 09/18/2023. After that we slightly will increase concentration of the fentanyl to 160 micro g. Prior: Patient is status post ITDD pain pump implant which was done on 07/03/2023. Unfortunately with escalation of the intrathecal doses her intrathecal pump medications started to cause more severe edema on bilateral lower extremities. Her primary care physician increased her Lasix to 20 mg every day. Unfortunately patient reports that the new dose of the medication only takes the edge of of her current pain sensation. Therefore with prospective of continuous escalation of the opioid dose will create significant lower extremities edema and in this would require much higher doses of Lasix which would not be appropriate for long-term care use. She came today to fill up her pump with fentanyl at the concentration of 70 mcg per ml. 20 mls.. The pump refill procedure as below. However after the pump refill was completed with continuous dose of fentanyl 15 mcg a day and on demand fentanyl 60 mcg 1 dose in 8 hours total two doses a day and the patent left my office, Ihad a second thoughts and decided to be at the err of caution. I called the patient and explained her that with the new medication the above dose would be too bold to start with and asked her not to use PTM device until we will see during the course of few days if there will be no complications on the small continuous dose of fentanyl. She agreed and expressed understanding. She will stop furosemide and we will see if this new medication have an effect on her edema. I will see her in one week. PRIOR: Patient presents today for follow up after passing behavioral evaluation without any contraindications. She would like to proceed with ITDD pain pump trial with Dilaudid. Patient reports she has received Dilaudid 2 mg oral prn during hospitalizations after multiple abdominal surgeries and has responded well to it. Patient reports her pain at 8.5/10 today, daily nausea and vomiting, episodic weakness and dizziness and constant abdominal pain. She is following up with her PCP provider today to discuss potential IVF therapy at home. Denies any fever, chills, weight changes, chest pain, shortness of breaths, bladder or bowel incontinence or saddle anesthesia. PRIOR: Patient is a pleasant 47-year-old female with complex medical history including lupus, connective tissue disorder, fibromyalgia, autoimmune disease, migraines, severe anxiety and panic attacks, at least 50 abdominal surgeries including small intestine resection, gastric bypass and most recently hiatal hernia repair, presents today with chronic abdominal pain and polyarthralgia. Patient reports she has been in chronic pain and digestive issues since 2010 after gastric bypass. She reports concerns for losing weight without trying it due to frequent cyclic vomiting, daily nausea, frequent dizziness and lightheadedness, gait imbalance upon getting up and low blood pressure. Patient reports her chronic abdominal pain is constant and can be easily aggravated this or without p.o. intake. Patient reports she takes Zofran 8 mg Q8H and Phenergan Q6H p.r.n. for significant nausea and vomiting. Patient reports aching pain in all of her joints of upper and lower extremities, and the stabbing, tightness, heavy and burning pain in her abdomen areas with localized tenderness in RUQ, epigastric, LUQ and RLQ areas. Patient recently had hiatal hernia repair and her incisions are well healed. Her abdominal pain is most severe in the morning and at night at 7-10/10 and least severe mid day at 5/10. Tramadol has been minimally effective for abdominal pain. Patient also reports taking Dilaudid and Liquid Morphine with better relief in the past. She takes Tylenol and heating pad for aching joints. Patient reports she recently started light physical therapy with no improvement yet. Historical abdominal surgeries include in 1999, gastric bypass in 2010, ulcer perforated stomach in 2011, feeding tube x2 in 2012, small intestine tumor ressection in 2013, multiple abdominal surgeries, feeding tubes, hernia resection [id number], and hysterectomy 2020. [facility] Medical History (Updated 08/19/23 @ 13:20 by Todd Mckeon MD) Chronic pain syndrome Anxiety Abdominal pain, chronic, epigastric Bilateral upper abdominal pain Insomnia Surgical History History of placement of ear tubes Hx of section Hx of tubal ligation Hx of cholecystectomy Hx of lymph node excision Hx of abdominal surgery History of colon resection Hx of gastric bypass Hx of hysterectomy History of repair of hiatal hernia Social History Patient Tobacco Use Status: Former Tobacco user Quit Date: 25 yrs ago Review of Systems Const All systems reviewed & are unremarkable except as noted in HPI and below ENT Reports Normal hearing present Neuro Reports Normal hearing present, Denies Abnormal speech present and Denies Sensory deficit (Neuro) Physical Exam Vital Signs: Last Vital Signs Pulse 71 08/31/23 09:34 Resp 14 08/31/23 09:34 BP 117/71 08/31/23 09:34 Pulse Ox 95 08/31/23 09:34 Oxygen Delivery Method Room Air 08/31/23 09:34 BMI result Body Mass Index 22.6 Last Vital Signs Temp 98 F 08/19/23 10:18 Pulse 102 H 08/19/23 10:18 Resp 19 08/19/23 10:18 BP 147/107 H 08/19/23 10:18 Pulse Ox 98 08/19/23 10:18 O2 Del Method Room Air 08/19/23 10:18 BMI result Body Mass Index 21.6 Const General: acute distress moderate Orientation/consciousness: patient oriented x3 Eyes General: appearance normal, both eyes and all related structures Pupils: Equal, round and reactive pupils present EOM: EOMs intact bilaterally Neck Neck: Yes full ROM Chest Chest palpation & inspection: normal inspection of the chest Resp Effort & Inspection: normal respiratory effort, able to speak in complete sentences, normal respiratory pattern, no audible wheezes and no cough Cardio Jugular venous distension: no JVD Peripheral pulses: other (Dependent edema bilateral lower extremities) GI Inspection: Yes normal to inspection Neuro General: patient oriented x3 and gait normal Cranial nerves: Yes Equal, round and reactive pupils present and Yes Normal hearing present Speech: No Abnormal speech present Gait exam (Neuro): Normal gait present Motor exam (neuro): 5/5 motor strength present throughout Sensory Exam: No Sensory deficit (Neuro) Extrem Other: No edema noted in bilateral lower extremities. Psych Speech and movement: Normal speech and movement present Affect: normal affect Attitude: cooperative Thought process: Normal thought process present Thought content: Normal thought content present Insight: Good insight present (Psych) Judgement: Good judgement present (Psych) Assessment & Plan Assessment & Plan (1) Chronic pain syndrome: Code(s): G89.4 - Chronic pain syndrome (2) Bilateral upper abdominal pain: Code(s): R10.11 - Right upper quadrant pain; R10.12 - Left upper quadrant pain Plan: Procedure: Intrathecal pump refill. THE PATIENT CAME TODAY in the office FOR THE CHANGE OF THE MEDICATION in her PAIN PUMP. The name and date of were verified and informed consent was obtained for the procedure. ?The pump was interrogated and the residual amount of fluid was found to be 5.1 mL. SHE WAS POSITIONED prone on the bed AND THE AREA OF THE INTRATHECAL PUMP WAS PREPPED WITH CHLORAPREP. The fenestrated drape was sterilely applied over the area of the pump. Sterile gloves were worn and of the aspiration system was assembled containing 2 in 22 gauge noncoring needle, the needle was connected to extension tubing which was connected to the 20 cc sterile syringe. The pain pump was palpated under the skin in the patient's right buttock area. The needle was inserted through the skin and the central plug of the pain pump and fluid was aspirated. The clear fluid was going into the syringe the total amount of the fluid was 5.0 mL .. After that a new batch? of medication was obtained which was containing Fentanyl in concentration 150 micro g/ml The admixture was made in 20 cc syringe prepared by [facility] compounding pharmacy. The syringe was connected to the bacterial filter, and then connected to the extension tubing. After that the medication in the syringe was slowly instilled into the pump with aspirations at 15 and 5 cc pulido.? The pump was reprogrammed for the doses of Fentanyl 19 mcg per day .? The pump was programmmed for 4. doses of PTM 35 micrograms intratheca lly? every 4. hours with maximum 4. activations per 24 hour, . (3) Abdominal pain, chronic, epigastric: Code(s): R10.13 - Epigastric pain; G89.29 - Other chronic pain (4) Cyclic vomiting syndrome: Code(s): R11.15 - Cyclical vomiting syndrome unrelated to migraine Plan We agreed today that if she will feel side effects from the administration of the PTM doses she will not be administering them to herself. She has naloxone in her household she also has a magnet to apply over the pump area to stall the device. Next refill appointment will be in September. We will order new concentration fentanyl of 160 micro g per mL. She already reports good pain relieve on PTM administration. It lasts only 1 hour. Further escalation of the dose could be considered versus addition of other medications to the pump regimen. Because of her abdominal pain it could be clonidine, octreotide, bupivacaine. Patient Instructions: I here by testify that I spent 36 minutes today in conversation with this patient as well as is feeling up her pump, as well as planning her care and organizing her medical note. Coding Level of Care Code Est Pt Level 4 (05398) Procedure Only Diagnoses Chronic pain syndrome G89.4 Bilateral upper abdominal pain R10.11; R10.12 Abdominal pain, chronic, epigastric R10.13; G89.29 Cyclic vomiting syndrome R11.15
[2023-08-31 09:34] VITALS: BP 117/71; PULSE 71; RESP 14; O2SAT 95; BMI 22.6
== END 2023-08-31 10:01 | disposition home or self-care (01) ==
PROVIDERS: PCP Nurse Practitioner Adult Health; Visit Provider Anesthesiology
DX: G89.4 Chronic pain syndrome (principal); R10.11 Right upper quadrant pain; R10.12 Left upper quadrant pain; R10.13 Epigastric pain; G89.29 Other chronic pain; R11.15 Cyclical vomiting syndrome unrelated to migraine
CPT/HCPCS: 62370

== ENCOUNTER → 2023-08-31 08:55 | Outpatient (BNVA) | payer MEDICARE, MEDICAID, SELFPAY | PROVIDERS: PCP Nurse Practitioner Adult Health; Visit Provider Anesthesiology | DX: Z45.89 Encounter for adjustment and management of other implanted devices (principal); R10.11 Right upper quadrant pain; R10.12 Left upper quadrant pain; R10.13 Epigastric pain; R11.15 Cyclical vomiting syndrome unrelated to migraine; G89.29 Other chronic pain | CPT/HCPCS: 62370 ==